=== PATIENT | female | born 1945 ===

== ENCOUNTER 2022-08-17 13:28 | Outpatient (CLI) | payer OTHER ==
[~2022-08-17 13:28] MED LIST: B COMPLEX/FOLIC1 TAB PO
== END 2022-08-17 13:38 | disposition home or self-care (01) ==
LOC: PPH VACUNA 13:28
PROVIDERS: ATTEND Emergency Medicine Pediatric Emergency Medicine
DX: Z23 Encounter for immunization (principal)

== ENCOUNTER → 2022-08-24 | Day surgery (SDC) | payer OTHER ==
[~2022-08-24] VITALS: Ht 160 cm; Wt 71.7 kg
[~2022-08-24] MED LIST changes: +LEVOTHYROXINE25 MCG PO; +METOPROLOL; +MORGIDOX100 MG PO; +NAPR500T14 PO
== END | disposition home or self-care (01) ==
LOC: ADM 08-22 07:45 → CIR.AMB 05:55
PROVIDERS: ATTEND Obstetrics & Gynecology
DX: N95.0 Postmenopausal bleeding (principal); N84.0 Polyp of corpus uteri; D25.0 Submucous leiomyoma of uterus; I10 Essential (primary) hypertension; F17.210 Nicotine dependence, cigarettes, uncomplicated; E03.9 Hypothyroidism, unspecified; D69.6 Thrombocytopenia, unspecified; Z20.822 Contact with and (suspected) exposure to COVID-19

== ENCOUNTER 2023-07-03 11:41 | Outpatient (CLI) | payer OTHER | END 2023-07-03 11:49 | disposition home or self-care (01) | LOC: RAD 11:41 | DX: M41.9 Scoliosis, unspecified (principal) ==